=== PATIENT | female | born 1965 | race American Indian/Alaskan Native ===

== ENCOUNTER 2017-10-30 13:42 | Emergency (ER) | payer OTHER ==
[2017-10-30] MEDS ORDERED: BOOSTRIX IM ONE (16:57)
[2017-10-30] MEDS ORDERED: SUBLIMAZE IV ONE (16:57)
[2017-10-30] MEDS ORDERED: TORADOL IV ONE (16:58)
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
[2017-10-30] MEDS: ANTIBIOTIC OINT TP STA ×2 (17:33→17:51)
[2017-10-30 18:14] VITALS: BP 154/92
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
== END 2017-10-30 18:45 | disposition home or self-care (01) ==
LOC: ED 13:42
DX: M79.631 Pain in right forearm (principal); I10 Essential (primary) hypertension; F17.200 Nicotine dependence, unspecified, uncomplicated; V43.52XA Car driver injured in collision with other type car in traffic accident, initial encounter; Y93.89 Activity, other specified; Y92.89 Other specified places as the place of occurrence of the external cause; Y99.8 Other external cause status
CPT/HCPCS: 29105; 73090; 90471; 90715; 96374; 96375; 99283; J1885; J3010